=== PATIENT | female | born 1955 | race Caucasian/White ===

== ENCOUNTER → 2021-05-01 13:42 | Outpatient (BNVA) | payer MEDICARE, SELFPAY | PROVIDERS: PCP Internal Medicine; Visit Provider Internal Medicine | DX: G47.33 Obstructive sleep apnea (adult) (pediatric) (principal); G47.34 Idiopathic sleep related nonobstructive alveolar hypoventilation; J98.4 Other disorders of lung; R09.02 Hypoxemia; E66.01 Morbid (severe) obesity due to excess calories; Z99.89 Dependence on other enabling machines and devices | CPT/HCPCS: 99212 ==

== ENCOUNTER → 2021-06-08 13:19 | Outpatient (BNVA) | payer MEDICARE, SELFPAY | PROVIDERS: PCP Internal Medicine; Visit Provider Internal Medicine | DX: R09.02 Hypoxemia (principal); J98.4 Other disorders of lung; G47.33 Obstructive sleep apnea (adult) (pediatric); G47.34 Idiopathic sleep related nonobstructive alveolar hypoventilation; E66.01 Morbid (severe) obesity due to excess calories; Z99.89 Dependence on other enabling machines and devices; Z68.42 Body mass index [BMI] 45.0-49.9, adult | CPT/HCPCS: 99212 ==

== ENCOUNTER → 2021-10-05 12:55 | Outpatient (BNVA) | payer MEDICARE, SELFPAY | PROVIDERS: PCP Internal Medicine; Visit Provider Internal Medicine | DX: J98.4 Other disorders of lung (principal); R09.02 Hypoxemia; G47.33 Obstructive sleep apnea (adult) (pediatric); G47.34 Idiopathic sleep related nonobstructive alveolar hypoventilation; E66.01 Morbid (severe) obesity due to excess calories; Z99.89 Dependence on other enabling machines and devices; Z68.42 Body mass index [BMI] 45.0-49.9, adult | CPT/HCPCS: 99212 ==

== ENCOUNTER → 2022-04-12 13:10 | Outpatient (BNVA) | payer MEDICARE, SELFPAY | PROVIDERS: PCP Internal Medicine; Visit Provider Internal Medicine | DX: G47.33 Obstructive sleep apnea (adult) (pediatric) (principal); R09.02 Hypoxemia; J98.4 Other disorders of lung; G47.34 Idiopathic sleep related nonobstructive alveolar hypoventilation; E66.01 Morbid (severe) obesity due to excess calories; Z99.89 Dependence on other enabling machines and devices; Z68.43 Body mass index [BMI] 50.0-59.9, adult | CPT/HCPCS: 99212 ==

== ENCOUNTER → 2022-10-11 11:33 | Outpatient (BNVA) | payer MEDICARE, SELFPAY | PROVIDERS: PCP Internal Medicine; Visit Provider Internal Medicine | DX: R09.02 Hypoxemia (principal); G47.33 Obstructive sleep apnea (adult) (pediatric); J98.4 Other disorders of lung; G47.34 Idiopathic sleep related nonobstructive alveolar hypoventilation; R05.9 Cough, unspecified; E66.01 Morbid (severe) obesity due to excess calories; Z99.89 Dependence on other enabling machines and devices | CPT/HCPCS: Q3014 ==

== ENCOUNTER 2023-02-11 10:38 | Outpatient (AMB) | payer MEDICARE, SELFPAY ==
--- NOTE | 2023-02-11 10:46 | A.OFFVIS_ITS ---
Intake Vital Signs 02/11/23 10:48 Height 5 ft 4 in Weight 294 lb 8.601 oz BMI 50.6 BP 102/64 Blood Pressure Location Lt radial Position Sitting Pulse 65 Pulse Source Pulse Oximeter Pulse Oximetry (%) 98 Oxygen Delivery Method Nasal Cannula Oxygen Flow Rate 4 Intake Visit Reasons: Shortness of breath Intake Note: pt is here for follow up and she is feeling good, is able to go without oxygen while sitting, any exertion she needs her oxygen. 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 Goes around with the walker, She is being treated for obstructive sleep apnea/nocturnal hypoxemia, And also exercise induced hypoxemia. She does have restrictive pulmonary disorder due to, her morbid obesity but no real obstructive airway disorder. She is nonsmoker since year 1999 . Does not need any bronchodilator meds. She is using CPAP very regularly every night and sleeps well. Uses O2 2 L/minute along with the CPAP. During the daytime she uses portable oxygen with POC, whenever she has to walk or go outdoors. She hardly needs. to use oxygen at rest As she is not able to do much exercise she is not going to lose much weight. [facility] Medical History Cough Nocturnal hypoxemia Exercise hypoxemia Restrictive lung disease FAZAL on CPAP Morbid obesity Social History Patient Tobacco Use Status: Former Tobacco user Review of Systems Const All systems reviewed & are unremarkable except as noted in HPI and below Eyes Reports no additional complaints ENT Reports no additional complaints Card Denies chest pain, Denies irregular heart rhythm, Denies leg edema and Reports dyspnea on exertion (mild , because she does not walk fast.) Resp Denies cough, Reports dyspnea on exertion (mild , because she does not walk fast.) and Denies wheezing GI Reports no additional complaints Reports no additional complaints Musc Reports no additional complaints and Denies abnormal gait (Needs support, uses wheeled walker) Skin/Breast Reports system reviewed and no additional complaints, except as documented Neuro Denies abnormal gait (Needs support, uses wheeled walker) Psych Reports depression (Controlled with med) Endo Reports no additional complaints Sven/Lymph Reports no additional complaints Aller/Immun Denies wheezing Physical Exam Vital Signs: Last Vital Signs Pulse 65 02/11/23 10:48 BP 102/64 02/11/23 10:48 Pulse Ox 98 02/11/23 10:48 Oxygen Delivery Method Nasal Cannula 02/11/23 10:48 Oxygen Flow Rate 4 02/11/23 10:48 BMI result Body Mass Index 50.6 Const General: comfortable, no acute distress, alert and awake Orientation/consciousness: patient oriented x3 HEENT Head: Yes normal to inspection General nose exam: No nasal polyps present and No nasal discharge present Face and sinus: Yes sinuses nontender Mouth: oropharynx abnormals (Narrow and crowded, Mallampati class 4) Throat: Yes posterior oropharynx normal Eyes General: appearance normal, both eyes and all related structures Neck Neck: Yes normal visual inspection, Yes no lymphadenopathy, Yes trachea midline, Yes no JVD and Yes other (Neck is short and obese) Thyroid: Thyroid normal Chest Chest palpation & inspection: normal inspection of the chest, normal palpation of entire chest wall and no tenderness Resp Other: Breath sounds are diminished over the basilar areas and lung volumes are small, But no audible wheezes rhonchi or crepitations. Cardio Palpation: normal PMI Rate: regular rate Rhythm: regular rhythm Heart sounds: no gallops and no murmurs GI Palpation (GI): Soft to palpation, nontender, No hepatosplenomegaly present and no masses Auscultation: normal bowel sounds Back/Spine/Pelvis Thoracic/Lumbar Spine: thoracic and lumbar spine normal to inspection Skin General skin exam: no rashes or lesions noted Neuro General: patient oriented x3 and no focal motor deficits Cranial nerves: Yes CN's II-XII intact bilaterally Extrem General: Yes normal to inspection, Yes no calf tenderness and Yes edema (Only trace of pitting edema around the ankles) Psych Appearance: grossly normal and well kempt Speech and movement: Normal speech and movement present Assessment & Plan Assessment & Plan (1) Morbid obesity: Comment: THIS PATIENT HAS MORBID OBESITY FOR THE PAST MANY YEARS, HAS NOT BEEN ABLE TO LOSE WEIGHT BECAUSE SHE REMAINS VERY INACTIVE. NOT ABLE TO JOIN WEIGHT MANAGEMENT PROGRAM DIET IS EXPLAINED, UNFORTUNATELY CANNOT DO MUCH EXERCISE. Code(s): E66.01 - Morbid (severe) obesity due to excess calories (2) FAZAL on CPAP: Comment: HAS LONG-STANDING HISTORY OF OBSTRUCTIVE SLEEP APNEA. HAS BEEN TREATED WITH CPAP WHICH SHE HAS BEEN USING REGULARLY. ALSO USES O2 3 L/MINUTE ALONG WITH THE CPAP AT NIGHT. Code(s): G47.33 - Obstructive sleep apnea (adult) (pediatric); Z99.89 - Dependence on other enabling machines and devices (3) Restrictive lung disease: Comment: SHE HAS RATHER SEVERE DEGREE OF RESTRICTIVE LUNG DISORDER DUE TO HER MORBID OBESITY. ADVISED TO DO DEEP BREATHING EXERCISES REGULARLY AT LEAST 2 TO 3 TIMES A DAY. Code(s): J98.4 - Other disorders of lung (4) Exercise hypoxemia: Comment: PER 6 MINUTES WALK TEST SHE WAS FOUND TO HAVE SIGNIFICANT EXERCISE INDUCED HYPOXEMIA SHE IS NOW USING POC. AND O2 AT 3-4 L/MINUTE, WHEN SHE IS OUTDOORS. SHE IS VERY HAPPY TO HAVE POC. Code(s): R09.02 - Hypoxemia (5) Nocturnal hypoxemia: Comment: NOTED ABOVE THE OVERNIGHT OXIMETRY RECORDING SHOWED THAT SHE HAS SIGNIFICANT NOCTURNAL HYPOXEMIA IN SPITE OF USING CPAP. SO SHE USES O2 3 L/MINUTE AT NIGHT AND FEELS MUCH BETTER. Code(s): G47.34 - Idiopathic sleep related nonobstructive alveolar hypoventilation Coding Level of Care Code Est Pt Level 4 (05259) Diagnoses Morbid obesity E66.01 FAZAL on CPAP G47.33; Z99.89 Restrictive lung disease J98.4 Exercise hypoxemia R09.02 Nocturnal hypoxemia G47.34
[2023-02-11 10:48] VITALS: BP 102/64; PULSE 65; O2SAT 98; BMI 50.6
== END 2023-02-11 11:09 | disposition home or self-care (01) ==
PROVIDERS: PCP Internal Medicine; Visit Provider Internal Medicine
DX: E66.01 Morbid (severe) obesity due to excess calories (principal); G47.33 Obstructive sleep apnea (adult) (pediatric); Z99.89 Dependence on other enabling machines and devices; J98.4 Other disorders of lung; R09.02 Hypoxemia; G47.34 Idiopathic sleep related nonobstructive alveolar hypoventilation
CPT/HCPCS: 99214

== ENCOUNTER → 2023-02-11 10:38 | Outpatient (BNVA) | payer MEDICARE, SELFPAY | PROVIDERS: PCP Internal Medicine; Visit Provider Internal Medicine | DX: R09.02 Hypoxemia (principal); G47.34 Idiopathic sleep related nonobstructive alveolar hypoventilation; G47.33 Obstructive sleep apnea (adult) (pediatric); E66.01 Morbid (severe) obesity due to excess calories; J98.4 Other disorders of lung; Z99.89 Dependence on other enabling machines and devices | CPT/HCPCS: 99212 ==

== ENCOUNTER 2023-08-29 11:02 | Outpatient (AMB) | payer BC, SELFPAY ==
--- NOTE | 2023-08-29 11:03 | MHC.OFFVIS ---
Intake Vital Signs 08/29/23 11:05 Height 5 ft 4 in Weight 298 lb BMI 51.1 BP 155/77 H Blood Pressure Location Lt brachial Position Sitting Pulse 60 Pulse Source Pulse Oximeter Pulse Oximetry (%) 96 Oxygen Delivery Method Room Air Intake Visit Reasons: shortness of breath Intake Note: pt is on the VIDEO-PHONE for follow up and states she is feeling very well. exercise daily and this is helping a lot. Allergies Penicillins [PENICILLINS] Allergy (Unknown, Verified 08/29/23 11:24) UNKNOWN Medication List - Last Reconciled 08/29/23 by Celeste Taylor MD fluoxetine 20 mg PO DAILY losartan 100 mg PO DAILY Do you need a note to return to daycare/school/sports/work: No HPI shortness of breath HPI Details THIS WAS A TELE VISIT. PATIENT COULD NOT COME TO THE OFFICE BECAUSE OF INCREMENTAL WEATHER. SHE CLAIMS THAT HER BREATHING IS REMAINING VERY STABLE. SHE CAN WALK AROUND IN THE HOUSE WITHOUT GETTING MUCH SHORTNESS OF BREATH. SHE SLEEPS WELL WITH THE CPAP AND OXYGEN. SHE DOES NOT HAVE TO USE ANY BRONCHODILATOR INHALER. THERE IS NO ISSUE WITH HER CPAP USAGE. SHE IS TRYING TO WALK AROUND MORE IN THE HOUSE AND EXERCISING BUT HER WEIGHT IS UNCHANGED. [facility] Medical History Cough Nocturnal hypoxemia Exercise hypoxemia Restrictive lung disease FAZAL on CPAP Morbid obesity Social History Patient Tobacco Use Status: Former Tobacco user Review of Systems Const All systems reviewed & are unremarkable except as noted in HPI and below Eyes Reports no additional complaints ENT Reports no additional complaints Card Denies chest pain, Denies irregular heart rhythm, Denies leg edema and Reports dyspnea on exertion (mild , because she does not walk fast.) Resp Denies cough, Reports dyspnea on exertion (mild , because she does not walk fast.) and Denies wheezing GI Reports no additional complaints Reports no additional complaints Musc Reports no additional complaints and Denies abnormal gait (Needs support, uses wheeled walker) Skin/Breast Reports system reviewed and no additional complaints, except as documented Neuro Denies abnormal gait (Needs support, uses wheeled walker) Psych Reports depression (Controlled with med) Endo Reports no additional complaints Sven/Lymph Reports no additional complaints Aller/Immun Denies wheezing Physical Exam Vital Signs: Last Vital Signs Pulse 60 08/29/23 11:05 BP 155/77 H 08/29/23 11:05 Pulse Ox 96 08/29/23 11:05 Oxygen Delivery Method Room Air 08/29/23 11:05 BMI result Body Mass Index 51.1 Const Other: TELE VISIT SO NO PHYSICAL EXAMINATION Assessment & Plan Assessment & Plan (1) Morbid obesity: Comment: THIS PATIENT HAS MORBID OBESITY FOR THE PAST MANY YEARS, HAS NOT BEEN ABLE TO LOSE WEIGHT BECAUSE SHE REMAINS VERY INACTIVE. NOT ABLE TO JOIN WEIGHT MANAGEMENT PROGRAM DIET IS EXPLAINED, UNFORTUNATELY CANNOT DO MUCH EXERCISE. Code(s): E66.01 - Morbid (severe) obesity due to excess calories Plan: AGAIN DISCUSSED WITH HER AND ADVISED TO CUT DOWN CALORIES INTAKE. TRY TO WALK AROUND IN THE HOUSE ON A DAILY BASIS. (2) FAZAL on CPAP: Comment: HAS LONG-STANDING HISTORY OF OBSTRUCTIVE SLEEP APNEA. HAS BEEN TREATED WITH CPAP WHICH SHE HAS BEEN USING REGULARLY. ALSO USES O2 3 L/MINUTE ALONG WITH THE CPAP AT NIGHT. Code(s): G47.33 - Obstructive sleep apnea (adult) (pediatric); Z99.89 - Dependence on other enabling machines and devices Plan: CONTINUE USING CPAP EVERY NIGHT WITH O2 2 L/MINUTE (3) Restrictive lung disease: Comment: SHE HAS RATHER SEVERE DEGREE OF RESTRICTIVE LUNG DISORDER DUE TO HER MORBID OBESITY. DOES NOT HAVE ANY ASSOCIATED ASTHMA OR COPD. DOES NOT NEED TO USE ANY BRONCHODILATOR INHALER Code(s): J98.4 - Other disorders of lung Plan: ADVISED TO DO DEEP BREATHING EXERCISES REGULARLY AT LEAST 2 TO 3 TIMES A DAY. (4) Exercise hypoxemia: Comment: PER 6 MINUTES WALK TEST SHE WAS FOUND TO HAVE SIGNIFICANT EXERCISE INDUCED HYPOXEMIA SHE IS NOW USING POC. AND O2 AT 3-4 L/MINUTE, WHEN SHE IS OUTDOORS OR DOING ANY PHYSICAL WORK AT HOME Code(s): R09.02 - Hypoxemia Plan: SHE IS VERY HAPPY WITH THE POC. ADVISED TO USE 2 L/MINUTE ANY TIME SHE IS WALKING AROUND OR DOING ANY PHYSICAL WORK (5) Nocturnal hypoxemia: Comment: NOTED ABOVE THE OVERNIGHT OXIMETRY RECORDING SHOWED THAT SHE HAS SIGNIFICANT NOCTURNAL HYPOXEMIA IN SPITE OF USING CPAP. SO SHE USES O2 3 L/MINUTE AT NIGHT AND FEELS MUCH BETTER. Code(s): G47.34 - Idiopathic sleep related nonobstructive alveolar hypoventilation Plan: USE O2 3 L/MINUTE ALONG WITH THE CPAP Telehealth Telehealth Location of provider rendering services: practice address Location of patient: address on file Patient Identification confirmed using: Name, : Yes Telehealth method: voice only Patient verbally consented to treatment: Yes Patient verbally consented to billing insurance company: Yes Patient informed of any privacy concerns related to visit: Yes Minutes spent on Phone/Video with Pt.: 20 Coding Level of Care Code Tele Est Pt Level 4 (65779) Diagnoses Morbid obesity E66.01 FAZAL on CPAP G47.33; Z99.89 Restrictive lung disease J98.4 Exercise hypoxemia R09.02 Nocturnal hypoxemia G47.34
[2023-08-29 11:05] VITALS: BP 155/77; PULSE 60; O2SAT 96; BMI 51.1
== END 2023-08-29 11:38 | disposition home or self-care (01) ==
LOC: HO.HPS 11:02
PROVIDERS: PCP Internal Medicine; Visit Provider Internal Medicine
DX: G47.33 Obstructive sleep apnea (adult) (pediatric) (principal); Z99.89 Dependence on other enabling machines and devices; E66.01 Morbid (severe) obesity due to excess calories; J98.4 Other disorders of lung; R09.02 Hypoxemia; G47.34 Idiopathic sleep related nonobstructive alveolar hypoventilation
CPT/HCPCS: 99442

== ENCOUNTER → 2023-08-29 11:02 | Outpatient (BNVA) | payer BC, SELFPAY | PROVIDERS: PCP Internal Medicine; Visit Provider Internal Medicine ==

== ENCOUNTER 2024-03-04 10:39 | Outpatient (AMB) | payer BC, SELFPAY ==
[2024-03-04 10:41] VITALS: BP 130/78; PULSE 65; O2SAT 99; BMI 51.1
--- NOTE | 2024-03-04 10:41 | A.OFFVIS_ITS ---
Vital Signs 03/04/24 10:41 Height 5 ft 4 in Weight 297 lb 9.985 oz BMI 51.1 BP 130/78 Blood Pressure Location Lt brachial Position Sitting Pulse 65 Pulse Source Pulse Oximeter Pulse Oximetry (%) 99 Oxygen Delivery Method Nasal Cannula Oxygen Flow Rate 4 Intake Visit Reasons: Shortness of breath Intake Note: pt is here for follow up and feels good, no changes in breathing, using 4 liters most of the time,takes breaks without it. Store Group Manager Required: No Allergies Penicillins [PENICILLINS] Allergy (Unknown, Verified 03/04/24 11:03) UNKNOWN Medication List - Last Reconciled 03/04/24 by Celeste Taylor MD fluoxetine 20 mg PO DAILY icosapent ethyl (Vascepa) 2 grams PO BID losartan 100 mg PO DAILY Do you need a note to return to daycare/school/sports/work: No HPI HPI Shortness of breath: Details: Madie is 69 years old female with super morbid obesity, obstructive sleep apnea/hypoventilation syndrome, with restrictive pulmonary disease and hypoxemia. She is here for 6 months follow-up. Claims to be doing well, using CPAP every night regularly. And using O2 4 L/minute at night and during the daytime. She is able to go without oxygen for short periods during the daytime. Denies cough or wheezing., so she does not need any bronchodilator inhalers. She has a standing walker, which helps her ambulating around and she is very happy with that . [facility] Medical History (Updated 03/04/24 @ 11:10 by Celeste Taylor MD) Respiratory failure with hypoxia Cough Nocturnal hypoxemia Exercise hypoxemia Restrictive lung disease FAZAL on CPAP Morbid obesity Social History Patient Tobacco Use Status: Former Tobacco user Review of Systems Const All systems reviewed & are unremarkable except as noted in HPI and below Eyes Reports no additional complaints ENT Reports no additional complaints Card Denies chest pain, Denies irregular heart rhythm, Denies leg edema and Reports dyspnea on exertion (mild , because she does not walk fast.) Resp Denies cough, Reports dyspnea on exertion (mild , because she does not walk fast.) and Denies wheezing GI Reports no additional complaints Reports no additional complaints Musc Reports no additional complaints and Denies abnormal gait (Needs support, uses wheeled walker) Skin/Breast Reports system reviewed and no additional complaints, except as documented Neuro Denies abnormal gait (Needs support, uses wheeled walker) Psych Reports depression (Controlled with med) Endo Reports no additional complaints Sven/Lymph Reports no additional complaints Aller/Immun Denies wheezing Physical Exam Vital Signs: Last Vital Signs Pulse 65 03/04/24 10:41 BP 130/78 03/04/24 10:41 Pulse Ox 99 03/04/24 10:41 Oxygen Delivery Method Nasal Cannula 03/04/24 10:41 Oxygen Flow Rate 4 03/04/24 10:41 BMI result Body Mass Index 51.1 Const General: comfortable, no acute distress, alert and awake Orientation/consciousness: patient oriented x3 HEENT Head: Yes normal to inspection General nose exam: No nasal polyps present and No nasal discharge present Face and sinus: Yes sinuses nontender Mouth: oropharynx abnormals (Narrow and crowded, Mallampati class 4) Throat: Yes posterior oropharynx normal Eyes General: appearance normal, both eyes and all related structures Neck Neck: Yes normal visual inspection, Yes no lymphadenopathy, Yes trachea midline, Yes no JVD and Yes other (Neck is short and obese) Thyroid: Thyroid normal Chest Chest palpation & inspection: normal inspection of the chest, normal palpation of entire chest wall and no tenderness Resp Other: Breath sounds are diminished over the basilar areas and lung volumes are small, But no audible wheezes rhonchi or crepitations. Cardio Palpation: normal PMI Rate: regular rate Rhythm: regular rhythm Heart sounds: no gallops and no murmurs GI Palpation (GI): Soft to palpation, nontender, No hepatosplenomegaly present and no masses Auscultation: normal bowel sounds Back/Spine/Pelvis Thoracic/Lumbar Spine: thoracic and lumbar spine normal to inspection Skin General skin exam: no rashes or lesions noted Neuro General: patient oriented x3 and no focal motor deficits Cranial nerves: Yes CN's II-XII intact bilaterally Extrem General: Yes normal to inspection, Yes no calf tenderness and Yes edema (Only trace of pitting edema around the ankles) Psych Appearance: grossly normal and well kempt Speech and movement: Normal speech and movement present Assessment & Plan Assessment & Plan (1) Morbid obesity: Comment: THIS PATIENT HAS MORBID OBESITY FOR THE PAST MANY YEARS, HAS NOT BEEN ABLE TO LOSE WEIGHT BECAUSE SHE REMAINS VERY INACTIVE. NOT ABLE TO JOIN WEIGHT MANAGEMENT PROGRAM DIET IS EXPLAINED, UNFORTUNATELY CANNOT DO MUCH EXERCISE. Code(s): E66.01 - Morbid (severe) obesity due to excess calories Category: Medical Plan: Once again diet explained, She is not able to exercise. There is very little potential for her to lose weight. (2) FAZAL on CPAP: Comment: HAS LONG-STANDING HISTORY OF OBSTRUCTIVE SLEEP APNEA. HAS BEEN TREATED WITH CPAP WHICH SHE HAS BEEN USING REGULARLY. ALSO USES O2 3 L/MINUTE ALONG WITH THE CPAP AT NIGHT. Code(s): G47.33 - Obstructive sleep apnea (adult) (pediatric); Z99.89 - Dependence on other enabling machines and devices Category: Medical Plan: Continue to use the CPAP at night along with O2 . (3) Restrictive lung disease: Comment: SHE HAS RATHER SEVERE DEGREE OF RESTRICTIVE LUNG DISORDER DUE TO HER MORBID OBESITY. DOES NOT HAVE ANY ASSOCIATED ASTHMA OR COPD. DOES NOT NEED TO USE ANY BRONCHODILATOR INHALER Code(s): J98.4 - Other disorders of lung Category: Medical Plan: Advised to do deep breathing exercises at least 3 times a day (4) Respiratory failure with hypoxia: Comment: She has nocturnal as well as exercise induced hypoxemia. Code(s): J96.91 - Respiratory failure, unspecified with hypoxia Category: Medical Plan: Use O2 2 L/minute along with the CPAP at night. Use O2 2-3 L/minute during the daytime with any physical activity. Goal is to keep O2 sat above 92%. Coding Level of Care Code Est Pt Level 3 (48395) Diagnoses Morbid obesity E66.01 FAZAL on CPAP G47.33; Z99.89 Restrictive lung disease J98.4 Respiratory failure with hypoxia J96.91
== END 2024-03-04 11:07 | disposition home or self-care (01) ==
PROVIDERS: PCP Internal Medicine; Visit Provider Internal Medicine
DX: E66.01 Morbid (severe) obesity due to excess calories (principal); G47.33 Obstructive sleep apnea (adult) (pediatric); Z99.89 Dependence on other enabling machines and devices; J98.4 Other disorders of lung; J96.91 Respiratory failure, unspecified with hypoxia
CPT/HCPCS: 99213

== ENCOUNTER → 2024-03-04 10:39 | Outpatient (BNVA) | payer BC, SELFPAY | PROVIDERS: PCP Internal Medicine; Visit Provider Internal Medicine ==

== ENCOUNTER 2024-09-09 10:23 | Outpatient (REF) | payer MEDICARE, SELFPAY ==
[2024-09-09 11:55] LABS: VBG Base Excess 8.5 mmol/L; VBG HCO3 36 mmol/L (22-26); VBG pCO2 66 mmHg; VBG pH 7.34 (7.32-7.43); VBG pO2 31 mmHg
[2024-09-09 11:56] LABS: Venous Blood Gas Refer to POC result
== END 2024-09-09 10:24 | disposition home or self-care (01) ==
LOC: HO.LAB 10:23
PROVIDERS: PCP Internal Medicine; Visit Provider Internal Medicine
DX: J96.91 Respiratory failure, unspecified with hypoxia (principal); J98.4 Other disorders of lung; G47.33 Obstructive sleep apnea (adult) (pediatric); E66.01 Morbid (severe) obesity due to excess calories; Z68.43 Body mass index [BMI] 50.0-59.9, adult; Z99.89 Dependence on other enabling machines and devices; Z99.81 Dependence on supplemental oxygen
CPT/HCPCS: 36415; 82803

== ENCOUNTER 2024-09-09 10:23 | Outpatient (AMB) | payer BC, SELFPAY ==
[2024-09-09 10:32] VITALS: BP 122/78; PULSE 73; O2SAT 99; BMI 52.4
--- NOTE | 2024-09-09 10:32 | A.OFFVIS_ITS ---
Vital Signs 09/09/24 10:32 Height 5 ft 4 in Weight 305 lb 5.443 oz BMI 52.4 BP 122/78 Blood Pressure Location Lt brachial Position Sitting Pulse 73 Pulse Source Pulse Oximeter Pulse Oximetry (%) 99 Oxygen Delivery Method Nasal Cannula Oxygen Flow Rate 4 Intake Visit Reasons: Shortness of breath Intake Note: pt is here for follow up and states she using oxygen at night and when going out to activities outside of the home. Membership Sales Manager Required: No Allergies Penicillins [PENICILLINS] Allergy (Unknown, Verified 09/09/24 11:46) UNKNOWN Medication List - Last Reconciled 09/09/24 by Celeste Taylor MD fluoxetine 20 mg PO DAILY losartan 100 mg PO DAILY multivitamin (Daily Multi-Vitamin tablet) 1 tab PO DAILY psyllium husk (Metamucil) 1 tbsp PO DAILY Do you need a note to return to daycare/school/sports/work: No HPI HPI Shortness of breath: Details: ALYSSA Desouza IS 69 YEARS OLD LADY WITH SUPER MORBID OBESITY, AND CHRONIC HYPOVENTILATION SYNDROME, WITH HYPOXEMIA AT NIGHT AND P.R.N. DURING THE DAYTIME. HE IS BEING MANAGED WITH OXYGEN 4 L/MINUTE DURING THE DAYTIME WHEN SHE GOES OUTDOORS, AND 2 L/MINUTE AT NIGHT. HE REMAINS MOSTLY HOMEBOUND. GETS AROUND WITH A WALKER, DENIES COUGH OR WHEEZING. HAS OCCASIONAL SHORTNESS OF BREATH. HAS NOT NEEDED TO USE ANY BRONCHODILATORS. [facility] Medical History Respiratory failure with hypoxia Cough Nocturnal hypoxemia Exercise hypoxemia Restrictive lung disease FAZAL on CPAP Morbid obesity Social History Patient Tobacco Use Status: Former Tobacco user Review of Systems Const All systems reviewed & are unremarkable except as noted in HPI and below Eyes Reports no additional complaints ENT Reports no additional complaints Card Denies chest pain, Denies irregular heart rhythm, Denies leg edema and Reports dyspnea on exertion (mild , because she does not walk fast.) Resp Denies cough, Reports dyspnea on exertion (mild , because she does not walk fast.) and Denies wheezing GI Reports no additional complaints Reports no additional complaints Musc Reports no additional complaints and Denies abnormal gait (Needs support, uses wheeled walker) Skin/Breast Reports system reviewed and no additional complaints, except as documented Neuro Denies abnormal gait (Needs support, uses wheeled walker) Psych Reports depression (Controlled with med) Endo Reports no additional complaints Sven/Lymph Reports no additional complaints Aller/Immun Denies wheezing Physical Exam Vital Signs: Last Vital Signs Pulse 73 09/09/24 10:32 BP 122/78 09/09/24 10:32 Pulse Ox 99 09/09/24 10:32 Oxygen Delivery Method Nasal Cannula 09/09/24 10:32 Oxygen Flow Rate 4 09/09/24 10:32 BMI result Body Mass Index 52.4 Const General: comfortable, no acute distress, alert and awake Orientation/consciousness: patient oriented x3 HEENT Head: Yes normal to inspection General nose exam: No nasal polyps present and No nasal discharge present Face and sinus: Yes sinuses nontender Mouth: oropharynx abnormals (Narrow and crowded, Mallampati class 4) Throat: Yes posterior oropharynx normal Eyes General: appearance normal, both eyes and all related structures Neck Neck: Yes normal visual inspection, Yes no lymphadenopathy, Yes trachea midline, Yes no JVD and Yes other (Neck is short and obese) Thyroid: Thyroid normal Chest Chest palpation & inspection: normal inspection of the chest, normal palpation of entire chest wall and no tenderness Resp Other: Breath sounds are diminished over the basilar areas and lung volumes are small, But no audible wheezes rhonchi or crepitations. Cardio Palpation: normal PMI Rate: regular rate Rhythm: regular rhythm Heart sounds: no gallops and no murmurs GI Palpation (GI): Soft to palpation, nontender, No hepatosplenomegaly present and no masses Auscultation: normal bowel sounds Back/Spine/Pelvis Thoracic/Lumbar Spine: thoracic and lumbar spine normal to inspection Skin General skin exam: no rashes or lesions noted Neuro General: patient oriented x3 and no focal motor deficits Cranial nerves: Yes CN's II-XII intact bilaterally Extrem General: Yes normal to inspection, Yes no calf tenderness and Yes edema (Only trace of pitting edema around the ankles) Psych Appearance: grossly normal and well kempt Speech and movement: Normal speech and movement present Results Reviewed Results Reviewed: VENOUS BLOOD GAS TEST IS ORDERED PH=7.34 PCO2 64 , HCO3 = 36 Assessment & Plan Assessment & Plan (1) Morbid obesity: Comment: THIS PATIENT HAS MORBID OBESITY FOR THE PAST MANY YEARS, HAS NOT BEEN ABLE TO LOSE WEIGHT BECAUSE SHE REMAINS VERY INACTIVE. NOT ABLE TO JOIN WEIGHT MANAGEMENT PROGRAM DIET IS EXPLAINED, UNFORTUNATELY CANNOT DO MUCH EXERCISE. Code(s): E66.01 - Morbid (severe) obesity due to excess calories Category: Medical Plan: AGAIN TALKED ABOUT HER WEIGHT ISSUE AND ADVISED TO WATCH HER DIET MUCH SHE CAN. ANY WEIGHT LOSS IN HER CASE IS NOT EXPECTED. (2) FAZAL on CPAP: Comment: HAS LONG-STANDING HISTORY OF OBSTRUCTIVE SLEEP APNEA. HAS BEEN TREATED WITH CPAP WHICH SHE HAS BEEN USING REGULARLY. ALSO USES O2 3 L/MINUTE ALONG WITH THE CPAP AT NIGHT. VENOUS BLOOD GAS STUDY SHOWS THAT SHE HAS CHRONIC COMPENSATED RESPIRATORY FAILURE ( PH=7.34, PCO2 =66 HCO3 36 Code(s): G47.33 - Obstructive sleep apnea (adult) (pediatric); Z99.89 - Dependence on other enabling machines and devices Category: Medical Plan: ADVISED TO CONTINUE USING THE CPAP REGULARLY EVERY NIGHT ALONG WITH O2 3 L/MINUTE INCENTIVE SPIROMETRY DEVICE GIVEN FROM THE OFFICE AND SHE IS INSTRUCTED TO DO DEEP BREATHING EXERCISES EVERY 2 HOURS WHILE AWAKE. THIS SHOULD HELP TO INCREASE HER VENTILATION. (3) Restrictive lung disease: Comment: SHE HAS RATHER SEVERE DEGREE OF RESTRICTIVE LUNG DISORDER DUE TO HER MORBID OBESITY. DOES NOT HAVE ANY ASSOCIATED ASTHMA OR COPD. DOES NOT NEED TO USE ANY BRONCHODILATOR INHALER Code(s): J98.4 - Other disorders of lung Category: Medical Plan: GAVE HER INCENTIVE SPIROMETRY DEVICE AND EDUCATED TO DO DEEP BREATHING EXERCISES WHILE AWAKE , AND SHE IS ENCOURAGED TO DO BREATHING EXERCISES EVERY 2 OR 3 HOURS DURING THE DAY. (4) Respiratory failure with hypoxia: Comment: She has nocturnal as well as exercise induced hypoxemia. Code(s): J96.91 - Respiratory failure, unspecified with hypoxia Category: Medical Plan: USE O2 3 L/MINUTE AT NIGHT, AND 4 L/MINUTE WITH THE POC DURING THE DAYTIME WHEN GOING OUTDOORS OR DOING ANY PHYSICAL WORK AT HOME. Orders: Orders Venous Blood Gas Today G47.33 - Obstructive sleep apnea (adult) (pediatric), J96.91 - Respiratory failure, unspecified with hypoxia, Z99.89 - Dependence on other enabling machines and devices Coding Level of Care Code Est Pt Level 4 (33328) Diagnoses Morbid obesity E66.01 FAZAL on CPAP G47.33; Z99.89 Restrictive lung disease J98.4 Respiratory failure with hypoxia J96.91
== END 2024-09-09 11:10 | disposition home or self-care (01) ==
LOC: HO.HPS 10:23
PROVIDERS: PCP Internal Medicine; Visit Provider Internal Medicine
DX: E66.01 Morbid (severe) obesity due to excess calories (principal); G47.33 Obstructive sleep apnea (adult) (pediatric); Z99.89 Dependence on other enabling machines and devices; J98.4 Other disorders of lung; J96.91 Respiratory failure, unspecified with hypoxia
CPT/HCPCS: 99214

== ENCOUNTER 2025-03-16 09:47 | Outpatient (AMB) | payer MEDICARE, SELFPAY ==
[2025-03-16 09:53] VITALS: BP 142/72; PULSE 66; O2SAT 97; BMI 51.1
--- NOTE | 2025-03-16 09:53 | MHC.OFFVIS ---
Vital Signs 03/16/25 09:53 Height 5 ft 4 in Weight 297 lb 9.985 oz BMI 51.1 BP 142/72 H Blood Pressure Location Lt brachial Position Sitting Pulse 66 Pulse Source Pulse Oximeter Pulse Oximetry (%) 97 Oxygen Delivery Method Nasal Cannula Oxygen Flow Rate 4 Intake Visit Reasons: Shortness of breath Intake Note: pt is here for follow up and states she is feeling well. using oxygen daytime with exertion and at night time. 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 SHE HAS SIGNIFICANT RESTRICTIVE LUNG DISEASE WITH CHRONIC HYPOVENTILATION SYNDROME. DOING VERY WELL WITH THE USE OF CPAP AND OXYGEN AT NIGHT. AND ALSO USES O2 WITH PORTABLE CONCENTRATOR , IF SHE HAS TO GO OUTDOORS,. NOT AT HOME SHE IS TRYING TO LOSE WEIGHT WHICH IS DIFFICULT FOR HER, SHE DOES NOT DO MUCH EXERCISE. SHE DOES NOT HAVE ANY OBSTRUCTIVE AIRWAY DISORDER. ROMEKIESDRAS HAS BEEN FREE FROM ANY RESPIRATORY INFECTION. [facility] Medical History Respiratory failure with hypoxia Cough Nocturnal hypoxemia Exercise hypoxemia Restrictive lung disease FAZAL on CPAP Morbid obesity Social History Patient Tobacco Use Status: Former Tobacco user Review of Systems Const All systems reviewed & are unremarkable except as noted in HPI and below Eyes Reports no additional complaints ENT Reports no additional complaints Card Denies chest pain, Denies irregular heart rhythm, Denies leg edema and Reports dyspnea on exertion (mild , because she does not walk fast.) Resp Denies cough, Reports dyspnea on exertion (mild , because she does not walk fast.) and Denies wheezing GI Reports no additional complaints Reports no additional complaints Musc Reports no additional complaints and Denies abnormal gait (Needs support, uses wheeled walker) Skin/Breast Reports system reviewed and no additional complaints, except as documented Neuro Denies abnormal gait (Needs support, uses wheeled walker) Psych Reports depression (Controlled with med) Endo Reports no additional complaints Sven/Lymph Reports no additional complaints Aller/Immun Denies wheezing Physical Exam Const General: comfortable, no acute distress, alert and awake Orientation/consciousness: patient oriented x3 HEENT Head: Yes normal to inspection General nose exam: No nasal polyps present and No nasal discharge present Face and sinus: Yes sinuses nontender Mouth: oropharynx abnormals (Narrow and crowded, Mallampati class 4) Throat: Yes posterior oropharynx normal Eyes General: appearance normal, both eyes and all related structures Neck Neck: Yes normal visual inspection, Yes no lymphadenopathy, Yes trachea midline, Yes no JVD and Yes other (Neck is short and obese) Thyroid: Thyroid normal Chest Chest palpation & inspection: normal inspection of the chest, normal palpation of entire chest wall and no tenderness Resp Other: Breath sounds are diminished over the basilar areas and lung volumes are small, But no audible wheezes rhonchi or crepitations. Cardio Palpation: normal PMI Rate: regular rate Rhythm: regular rhythm Heart sounds: no gallops and no murmurs GI Palpation (GI): Soft to palpation, nontender, No hepatosplenomegaly present and no masses Auscultation: normal bowel sounds Back/Spine/Pelvis Thoracic/Lumbar Spine: thoracic and lumbar spine normal to inspection Skin General skin exam: no rashes or lesions noted Neuro General: patient oriented x3 and no focal motor deficits Cranial nerves: Yes CN's II-XII intact bilaterally Extrem General: Yes normal to inspection, Yes no calf tenderness and Yes edema (Only trace of pitting edema around the ankles) Psych Appearance: grossly normal and well kempt Speech and movement: Normal speech and movement present Assessment & Plan Assessment & Plan (1) Morbid obesity: Comment: THIS PATIENT HAS MORBID OBESITY FOR THE PAST MANY YEARS, HAS NOT BEEN ABLE TO LOSE WEIGHT BECAUSE SHE REMAINS VERY INACTIVE. NOT ABLE TO JOIN WEIGHT MANAGEMENT PROGRAM Code(s): E66.01 - Morbid (severe) obesity due to excess calories Category: Medical Plan: DISCUSSED ABOUT HER DIET. DO WALK IN THE HOUSE MUCH TOLERATED. (2) FAZAL on CPAP: Comment: HAS LONG-STANDING HISTORY OF OBSTRUCTIVE SLEEP APNEA. HAS BEEN TREATED WITH CPAP WHICH SHE HAS BEEN USING REGULARLY. ALSO USES O2 4 L/MINUTE ALONG WITH THE CPAP AT NIGHT. Code(s): G47.33 - Obstructive sleep apnea (adult) (pediatric); Z99.89 - Dependence on other enabling machines and devices Category: Medical Plan: CONTINUE TO USE THE CPAP EVERY NIGHT WITH O2 4 L/MINUTE. (3) Restrictive lung disease: Comment: SHE HAS RATHER SEVERE DEGREE OF RESTRICTIVE LUNG DISORDER DUE TO HER MORBID OBESITY. DOES NOT HAVE ANY ASSOCIATED ASTHMA OR COPD. DOES NOT NEED TO USE ANY BRONCHODILATOR INHALER Code(s): J98.4 - Other disorders of lung Category: Medical Plan: TRY TO LOSE WEIGHT EVEN IF IT IS A FEW LB EVERY MONTH. TRY TO DO DEEP BREATHING EXERCISES EVERY 2 HOURS DURING THE DAYTIME (4) Respiratory failure with hypoxia: Comment: She has nocturnal as well as exercise induced hypoxemia. Code(s): J96.91 - Respiratory failure, unspecified with hypoxia Category: Medical Plan: USE O2 4 L/MINUTE ALONG WITH THE CPAP AT NIGHT AND 4 L/MINUTE WITH POC WHEN GOING OUTDOORS DURING THE DAYTIME Coding Level of Care Code Est Pt Level 3 (54044) Diagnoses Morbid obesity E66.01 FAZAL on CPAP G47.33; Z99.89 Restrictive lung disease J98.4 Respiratory failure with hypoxia J96.91
== END 2025-03-16 10:11 | disposition home or self-care (01) ==
LOC: HO.HPS 09:48
PROVIDERS: PCP Internal Medicine; Visit Provider Internal Medicine
DX: E66.01 Morbid (severe) obesity due to excess calories (principal); G47.33 Obstructive sleep apnea (adult) (pediatric); Z99.89 Dependence on other enabling machines and devices; J98.4 Other disorders of lung; J96.91 Respiratory failure, unspecified with hypoxia
CPT/HCPCS: 99213

== ENCOUNTER → 2025-03-16 09:47 | Outpatient (BNVA) | payer MEDICARE, SELFPAY | PROVIDERS: PCP Internal Medicine; Visit Provider Internal Medicine | DX: E66.01 Morbid (severe) obesity due to excess calories (principal); G47.33 Obstructive sleep apnea (adult) (pediatric); Z99.89 Dependence on other enabling machines and devices; J98.4 Other disorders of lung; J96.91 Respiratory failure, unspecified with hypoxia | CPT/HCPCS: 99212 ==